=== PATIENT | male | born 2000 | race African-American/Black ===

== ENCOUNTER 2020-12-05 16:55 | Emergency (ER) | payer OTHER, SELFPAY ==
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
[2020-12-05 17:10] VITALS: BP 128/63; PULSE 77; RESP 20; TEMP 36.8; O2SAT 99
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
== END 2020-12-05 19:57 | disposition home or self-care (01) ==
PROVIDERS: Emergency Provider Emergency Medicine
DX: S60.511A Abrasion of right hand, initial encounter (principal); S80.02XA Contusion of left knee, initial encounter; V43.62XA Car passenger injured in collision with other type car in traffic accident, initial encounter
CPT/HCPCS: 73130; 73564; 99284